=== PATIENT | male | born 1985 | race African-American/Black ===

== ENCOUNTER 2017-09-08 21:18 | Emergency (ER) | payer OTHER ==
[~2017-09-08] VITALS: Ht 182.9 cm; Wt 66.2 kg
[~2017-09-08 21:18] MED LIST: AZITHROMYCIN 2250 MG PO; BACTRIM DS TAB1 EACH PO; IBUPROFEN 600600 M1 PO; LEVSIN PO; NAPROSYN500 MG PO; NOHOMEMEDICATIONS; NORCO 5-325 TA1 EACH PO; PENICILLIN VK500 M1 PO; PEPCID40 MG PO
[2017-09-08] MEDS ORDERED: BACTRIM DS TAB1 EACH PO (22:34)
[2017-09-08] MEDS ORDERED: KETOCONAZOLE15 GM TOP (22:36)
[2017-09-08 22:42] VITALS: BP 120/84
== END 2017-09-08 22:43 | disposition home or self-care (01) ==
LOC: ER 21:18
DX: L02.411 Cutaneous abscess of right axilla (principal); B35.6 Tinea cruris

== ENCOUNTER 2018-12-31 21:07 | Emergency (ER) | payer OTHER ==
[~2018-12-31] VITALS: Ht 182.9 cm; Wt 66.7 kg
[~2018-12-31 21:07] MED LIST changes: +KETOCONAZOLE15 GM TOP
[2018-12-31 21:31] LABS: URINE BILIRUBIN NEGATIVE (Negative); URINE BLOOD TRACE (Negative); URINE CLARITY CLEAR; URINE COLOR YELLOW; URINE GLUCOSE-RANDOM* NEGATIVE (Negative); URINE KETONES NEGATIVE (Negative); URINE LEUKOCYTES-REFLEX NEGATIVE (Negative); URINE NITRITE-REFLEX NEGATIVE (Negative); URINE PROTEIN (DIPSTICK) NEGATIVE (Negative); URINE SPECIFIC GRAVITY 1.015 (1.005-1.035)
[2018-12-31 21:44] LABS: AMP/METHAMP Negative (Negative); BARBITURATES Negative (Negative); BENZODIAZEPINES Negative (Negative); COCAINE Negative (Negative); METHADONE Negative (Negative); OPIATES Negative (Negative); PCP Negative (Negative)
[2018-12-31 22:24] LABS: ABSOLUTE NEUTROPHILS 3.8 thou/uL (1.4-8.2); BASOPHILS 0.6 % (0.0-2.0); HEMATOCRIT 40.9 % (42.0-52.0); HEMOGLOBIN 13.4 gm/dL (14.0-18.0); LYMPHOCYTES 20.1 % (24.0-44.0); MCH 27.1 pg (26.0-34.0); MCHC 32.7 g/dL (28.0-37.0); MCV 82.8 fL (80.0-100.0); MONOCYTES 6.4 % (1.0-8.0); PLATELET COUNT 217 thou/uL (150-400); POLYS 71.9 % (36.0-66.0); RBC 4.94 mil/uL (4.50-6.00); RDW 13.1 % (10.5-14.5); WBC 5.3 thou/uL (4.0-11.0)
[2018-12-31 22:30] LABS: CALCIUM 8.7 mg/dL (8.5-10.1); CREATININE 1.3 mg/dL (0.7-1.3); POTASSIUM 3.3 mmol/L (3.5-5.1)
[2018-12-31 22:36] LABS: ALBUMIN 3.7 g/dL (3.4-5.0); TOTAL BILIRUBIN 0.3 mg/dL (<0.1-1.0); TOTAL PROTEIN 6.9 g/dL (6.4-8.2)
[2018-12-31] MEDS ORDERED: ONDANSETRON ODT8 MG PO (22:40)
[2018-12-31] MEDS ORDERED: ANTIVERT25 MG PO (22:40)
[2018-12-31 23:45] VITALS: BP 121/77
--- NOTE | 2019-01-01 11:04 | EKG ---
[address] [address] ELECTROCARDIOGRAM REPORT Name: HELADIO BURDICK Room #: [id number] ������������������ Admission: 12/31/18 ������������������ Attend Phys: Discharge: 12/31/18 ������������������ Date of : 89 Report #: [id number] ����������������������������������������������������������������� [id number] THIS REPORT FOR: //name// [facility] ED Test Date: 2018-12-31 Test Time: 21:14:49 Pat Name: HELADIO BURDICK Department: Room: Gender: M [employer] Center Trainer: RICHAR : 1985 Requested By: Rogelio Barber Order Number: [id number] MD: Patrick Casas Measurements Intervals [place] Rate: 81 P: 77 AL: 163 QRS: 81 QRSD: 91 T: 55 QT: 337 QTc: 391 Interpretive Statements Sinus rhythm Compared to ECG 10/15/2008 12:25:18 No significant changes Electronically Signed On 01-01-2019 11:04:22 CDT by Patrick Casas [email or web address] ��������������������������������������������� <ELECTRONICALLY SIGNED> ���������������������������������������� By: Patrick Casas MD, [facility] ��������������������������������������������� 01/01/19 1104 2114 2114 Patrick Casas MD, FACC /EPI
== END 2018-12-31 23:46 | disposition home or self-care (01) ==
LOC: ER 21:07
PROVIDERS: Nurse Practitioner Family
DX: F12.929 Cannabis use, unspecified with intoxication, unspecified (principal); R42 Dizziness and giddiness; R11.0 Nausea

== ENCOUNTER 2019-09-14 18:24 | Emergency (ER) | payer OTHER ==
[~2019-09-14] VITALS: Ht 182.9 cm; Wt 69.4 kg
[~2019-09-14 18:24] MED LIST changes: +ANTIVERT25 MG PO; +ONDANSETRON ODT8 MG PO
[2019-09-14] MEDS ORDERED: TAMIFLU75 MG PO (19:21)
[2019-09-14] MEDS ORDERED: PROMETH-CODEIN 65 ML PO (19:21)
[2019-09-14 19:36] VITALS: BP 132/76
== END 2019-09-14 19:37 | disposition home or self-care (01) ==
LOC: ER 18:24
DX: J11.1 Influenza due to unidentified influenza virus with other respiratory manifestations (principal)

== ENCOUNTER 2021-02-24 23:44 | Emergency (ER) | payer OTHER ==
[~2021-02-24] VITALS: Ht 182.9 cm; Wt 69.0 kg
[~2021-02-24 23:44] MED LIST changes: +PROMETH-CODEIN 65 ML PO; +TAMIFLU75 MG PO
[2021-02-25] MEDS ORDERED: MOBIC15 MG PO (01:46)
[2021-02-25 01:58] VITALS: BP 114/79
== END 2021-02-25 01:58 | disposition home or self-care (01) ==
LOC: ER 23:44
DX: S46.912A Strain of unspecified muscle, fascia and tendon at shoulder and upper arm level, left arm, initial encounter (principal); W17.89XA Other fall from one level to another, initial encounter; Y93.51 Activity, roller skating (inline) and skateboarding; Y92.331 Roller skating rink as the place of occurrence of the external cause; Y99.8 Other external cause status

== ENCOUNTER 2021-03-06 09:59 | Emergency (ER) | payer OTHER ==
[~2021-03-06] VITALS: Ht 182.9 cm; Wt 69.0 kg
[~2021-03-06 09:59] MED LIST changes: +MOBIC15 MG PO
[2021-03-06 10:00] VITALS: BP 125/72
[2021-03-06] MEDS ORDERED: MOBIC15 MG PO (11:38)
[2021-03-06] MEDS ORDERED: NORCO5 PO (11:38)
== END 2021-03-06 11:40 | disposition home or self-care (01) ==
LOC: ER 09:59
DX: S43.402A Unspecified sprain of left shoulder joint, initial encounter (principal); X58.XXXA Exposure to other specified factors, initial encounter; Y93.89 Activity, other specified; Y92.89 Other specified places as the place of occurrence of the external cause; Y99.8 Other external cause status

== ENCOUNTER 2021-06-24 11:44 | Emergency (ER) | payer OTHER ==
[~2021-06-24] VITALS: Ht 182.9 cm; Wt 69.0 kg
[~2021-06-24 11:44] MED LIST changes: +NORCO5 PO
[2021-06-24 11:55] VITALS: BP 121/70
[2021-06-24] MEDS ORDERED: AMOXICILLIN500 M1 PO (12:02)
== END 2021-06-24 12:37 | disposition home or self-care (01) ==
LOC: ER 11:44
DX: H66.92 Otitis media, unspecified, left ear (principal); J02.9 Acute pharyngitis, unspecified; Z79.891 Long term (current) use of opiate analgesic; Z79.899 Other long term (current) drug therapy